=== PATIENT | female | born 1985 | race Caucasian/White ===

== ENCOUNTER 2020-07-03 15:41 | Emergency (ER) | payer OTHER ==
[~2020-07-03] VITALS: Ht 154.9 cm; Wt 88.9 kg
== END 2020-07-03 17:16 | disposition left against medical advice (07) ==
LOC: ER 15:41
DX: L02.414 Cutaneous abscess of left upper limb (principal); Z53.21 Procedure and treatment not carried out due to patient leaving prior to being seen by health care provider
CPT/HCPCS: 99282